=== PATIENT | female | born 1990 | race Caucasian/White ===

== ENCOUNTER 2021-09-05 11:33 | Emergency (ER) | payer OTHER ==
[2021-09-05 12:04] LABS: HEMOGLOBIN 11.8 gm/dl (12.3-15.3); RED BLOOD COUNT 4.56 M/UL (4.00-5.10); WHITE BLOOD COUNT 8.3 K/UL (4.5-11.0)
[2021-09-05 12:27] LABS: BUN/CREATININE RATIO 10 (0-10)
== END 2021-09-05 15:52 | disposition short-term general hospital (02) ==
LOC: ER1 11:33
PROVIDERS: Emergency Medicine
DX: I63.9 Cerebral infarction, unspecified (principal); Z20.822 Contact with and (suspected) exposure to COVID-19
CPT/HCPCS: 70450; 71045; 80053; 82550; 82553; 84484; 84703; 85025; 85610; 85730; 93005; 99285; U0002